=== PATIENT | female | born 1980 | race African-American/Black ===

== ENCOUNTER 2021-06-15 20:29 | Inpatient (IN) | payer MEDICARE, OTHER ==
[~2021-06-15] VITALS: Ht 165.1 cm; Wt 145.6 kg
--- NOTE | 2021-06-15 20:40 | NUR ---
PATIENT BIB RA 89 FROM [facility]. PATIENT UPON ARRIVAL WITH NON REBREATHER MASK ON 15 OF SATTING AT 97%.
--- NOTE | 2021-06-15 20:43 | NUR ---
Dr. Barillas on bedside for MSE.
[2021-06-15] MEDS ORDERED: ALBUTEROL SULFATE 2.5 MG/3 ML NEBU NEB ONE ×2 (21:00→22:45)
[2021-06-15] MEDS ORDERED: IPRATROPIUM BROMIDE 0.5 MG/2.5 ML NEBU NEB ONE (21:00)
[2021-06-15] MEDS ORDERED: predniSONE 10 MG TABLET PO ONE (21:00)
[2021-06-15] MEDS ORDERED: ALBUTEROL SULFATE 2.5 MG/3 ML NEBU ONE ×2 (21:11→22:42)
[2021-06-15] MEDS ORDERED: IPRATROPIUM BROMIDE 0.5 MG/2.5 ML NEBU ONE (21:12)
[2021-06-15] MEDS ORDERED: predniSONE 20 MG TABLET ONE (21:23)
[2021-06-15 21:54] LABS: HEMATOCRIT 33.8 % (31.2-41.9); MEAN CORPUSCULAR HEMOGLOBIN 25.9 uug (24.7-32.8); MEAN CORPUSCULAR VOLUME 82.3 fL (75.5-95.3); PLATELET COUNT (AUTO) 367 K/uL (179-408)
--- NOTE | 2021-06-15 22:00 | NUR ---
BIPAP PER MD VERBAL ORDER. TRIED PUTTING PATIENT ON BIPAP BUT PATIENT IS REFUSING TO BE PUT ON BIPAP. DOES NOT WANT TO BE ON BIPAP. PLACED PATIENT ON 100% FIO2 NRB MASK. PATIENT ALSO DOES NOT WANT ABG TO BE DONE. SAYS DOES NOT WANT NERVE DAMAGE. DR. DHILLON IS AWARE. PATIENT'S SPO2 IS CURRENTLY 97% .
[2021-06-15 22:10] LABS: ALANINE AMINOTRANSFERASE 48 U/L (14-59); ALKALINE PHOSPHATASE 227 U/L (50-136); ASPARTATE AMINOTRANSFERASE 28 U/L (15-37); BILIRUBIN,DIRECT < 0.1 mg/dL (0.0-0.2); BILIRUBIN,TOTAL 0.2 mg/dL (0.2-1.0); CHLORIDE 98 mmol/L (98-107); CREATININE 1.8 mg/dL (0.6-1.3); GLUCOSE 274 mg/dL (74-106); POTASSIUM 5.3 mmol/L (3.5-5.1); TOTAL PROTEIN, SERUM 8.5 g/dL (6.4-8.2); UREA NITROGEN, BLOOD 36 mg/dL (7-18)
[2021-06-15 22:14] LABS: CARBON DIOXIDE 40 mmol/L (21-32)
[2021-06-15 22:30] LABS: ABG BASE EXCESS 5.3 mmol/L; ABG HCO3 34.9 mmol/L; ABG PCO2 81.3 mmHg (35.0-45.0); ABG SITE RIGHT RADIAL; ABG TOTAL HEMOGLOBIN 11.8 G/dL (12.0-16.0); COHb 1.1 % (0.5-1.5); MetHb 0.3 % (0.0-1.5); O2Hb 92.6 % (94.0-97.0)
--- NOTE | 2021-06-15 22:30 | NUR ---
STU DRAWN. RESULTS GIVEN TO DR. DHILLON.
[2021-06-15] MEDS ORDERED: NEPA3DRO EACHEYE (22:43)
[2021-06-15] MEDS ORDERED: CARV25TA2 PO (22:43)
[2021-06-15] MEDS ORDERED: MAGN400O6 PO (22:43)
[2021-06-15] MEDS ORDERED: HEPA500034 SUBCUT (22:43)
[2021-06-15] MEDS ORDERED: NITR0.4T48 SL (22:43)
[2021-06-15] MEDS ORDERED: ATOR10TA PO (22:43)
[2021-06-15] MEDS ORDERED: ASCO500C18 PO (22:43)
[2021-06-15] MEDS ORDERED: ACET-2154 PO (22:43)
[2021-06-15] MEDS ORDERED: DOCU-141 PO (22:43)
[2021-06-15] MEDS ORDERED: MONT10TA33 PO (22:43)
[2021-06-15] MEDS ORDERED: METH-815 PO (22:43)
[2021-06-15] MEDS ORDERED: DIPH25CA83 PO (22:43)
[2021-06-15] MEDS ORDERED: CALC-261 PO (22:43)
[2021-06-15] MEDS ORDERED: ASPI81TA31 PO (22:43)
[2021-06-15] MEDS ORDERED: INSU100C4 SUBCUT (22:43)
[2021-06-15] MEDS ORDERED: LORA-259 PO (22:43)
[2021-06-15] MEDS ORDERED: GABA600T12 PO (22:43)
[2021-06-15] MEDS ORDERED: MELA5TAB PO (22:43)
[2021-06-15] MEDS ORDERED: DEXT15DR6 EACHEYE (22:43)
[2021-06-15] MEDS ORDERED: HYDR-4075 PO (22:43)
[2021-06-15] MEDS ORDERED: LEVO25TA9 PO (22:43)
[2021-06-15] MEDS ORDERED: OFLO5DRO EACHEYE (22:43)
[2021-06-15] MEDS ORDERED: ONDA-104 PO (22:43)
[2021-06-15] MEDS ORDERED: PANT40TA49 PO (22:43)
[2021-06-15] MEDS ORDERED: BENZ-13 PO (22:43)
[2021-06-15] MEDS ORDERED: NIFE-34 PO (22:43)
[2021-06-15] MEDS ORDERED: INSULIN GLARGINE SUBCUT ×2 (22:43)
[2021-06-15] MEDS ORDERED: VIT1TABL46 PO (22:43)
[2021-06-15] MEDS ORDERED: BUME1TAB8 PO (22:43)
[2021-06-15] MEDS ORDERED: CRAN425C6 PO (22:43)
[2021-06-15] MEDS ORDERED: CEFTRIAXONE 1 G in IV DEXTROSE 5% 50 ML IV ONE (22:45)
[2021-06-15] MEDS ORDERED: AZITHROMYCIN IV 500 MG in IV DEXTROSE 5% 250 ML IV ONE (22:45)
[2021-06-15] MEDS ORDERED: TERBUTALINE SULFATE 1 MG/1 ML VIAL SQ ONE (22:45)
[2021-06-15] MEDS ORDERED: LIDOCAINE 1%-EPI 1:100,000 20 ML VIAL ONE (23:25)
--- NOTE | 2021-06-15 23:37 | NUR ---
patient has IV access to right breast. attempted central line insertion, unsuccessful at this time. hold off on IV abx per ER right now
[2021-06-15] MEDS ORDERED: TERBUTALINE SULFATE 1 MG/1 ML VIAL ONE (23:49)
--- NOTE | 2021-06-15 23:57 | NUR ---
ASKED PATIENT IF SHE CAN TRY TOLERATING THE BIPAP. PLACED PATIENT ON BIPAP BUT PATIENT DID NOT LIKE. PATIENT DOES NOT WANT BIPAP ON. WANTS TO PUT ON NRB MASK. PATIENT IS ON NRB 15LPM. PATIENT SAYS SHES MORE COMFORTABLE ON NRB. DR. DHILLON IS AWARE.
[2021-06-16] VITALS (20 sets, daily range): BP systolic 137–174; BP diastolic 78–108
--- NOTE | 2021-06-16 | NUR ---
RT at bedside. patient unable to tolerate BIPAP. notified Dr. Barillas. patient currently on 15L NRB saturating 91-92%
[2021-06-16] MEDS ORDERED: LIDOCAINE 1%-EPI 1:100,000 20 ML VIAL IJ ONE (00:15)
--- NOTE | 2021-06-16 01:22 | NUR ---
pending nurse tech & vascular surgeon for central line access. per house sup, unable to have picc line nurse come in at this time.
[2021-06-16] MEDS ORDERED: ENOXAPARIN SODIUM 100 MG/ML DISP.SYRIN SQ ONE ×2 (01:45→03:02)
[2021-06-16] MEDS ORDERED: NITROGLYCERIN 0.4 MG/TAB BOTTLE SL PRN (02:15)
[2021-06-16] MEDS ORDERED: ONDANSETRON 4 MG/2 ML VIAL IV PRN (02:15)
[2021-06-16] MEDS ORDERED: BENZONATATE 100 MG CAPSULE PO PRN (02:15)
[2021-06-16] MEDS ORDERED: DEXTROSE 50% 50 ML DISP.SYRIN IV PRN (02:15)
[2021-06-16] MEDS ORDERED: ACETAMINOPHEN 325 MG TABLET PO PRN (02:15)
--- NOTE | 2021-06-16 02:29 | NUR ---
Dr. Schilling placed central line to right femoral. radio electronics technician Suzan was at bedside to assist.
[2021-06-16] MEDS ORDERED: diphenhydrAMINE 50 MG/1 ML VIAL IV ONE (02:30)
[2021-06-16] MEDS ORDERED: diphenhydrAMINE 50 MG/1 ML VIAL ONE (02:39)
[2021-06-16 02:57] LABS: FERRITIN 78 ng/mL (8-252)
--- NOTE | 2021-06-16 03:32 | NUR ---
patient transported to CCU Bed 3 on 15L NRB
--- NOTE | 2021-06-16 03:35 | NUR ---
Admitted a 40 y.o female patient from ER via [facility]vil DX: Respiratory Failure. To CCU 3; attached to bedside monitor. Routine CCU monitoring and care explained to patient. Uncooperative. Very SOB when lying flat during repositioning. Assessment done.
[2021-06-16] MEDS ORDERED: ALBUTEROL SULFATE 2.5 MG/3 ML NEBU IH PRN (03:45)
--- NOTE | 2021-06-16 03:45 | NUR ---
RTs at bedside. Placed on BIPAP settings: rate=16 15/5 QEW5=715%. Patient would nod off to sleep, arouses easily to name calls.
--- NOTE | 2021-06-16 03:52 | NUR ---
PATIENT TRANSPORTED TO CCU BED 3 VIA NRB, ASSISTED BT DAVID RN AND CARLOS RT. NO INCIDENT DURING TRANSPORT. PLACED PATIENT ON BIPAP WITH THE FOLLOWING SETTINGS THAT ARE CHARTED PER MD ORDERS. TOLERATING WELL AT THIS TIME. NO SOB NOTED. ALARMS ARE ON AND AUDIBLE. WILL CONTINUE TO MONITOR.
[2021-06-16 04:19] LABS: LACTATE DEHYDROGENASE 265 U/L (81-234)
[2021-06-16] MEDS ORDERED: HEPARIN SODIUM,PORCINE 5,000 UNITS/ML VIAL SQ SCH (06:00)
--- NOTE | 2021-06-16 06:00 | NUR ---
Patient incontinent of brown stools. Still very uncooperative at times. Advised. Remains on BIPAP with 100% FIO2. Saturations above 92%.
[2021-06-16] MEDS: GABAPENTIN 300 MG CAPSULE PO SCH ×2 (06:31→14:17)
[2021-06-16] MEDS: PANTOPRAZOLE SODIUM 40 MG TABLET.DR PO SCH (07:07)
[2021-06-16] MEDS: BLOOD SUGAR DIAGNOSTIC 1 EACH STRIP VI SCH ×4 (07:36→23:02)
[2021-06-16] MEDS: INSULIN REGULAR, HUMAN 300 UNIT/3 ML VIAL SQ PRN ×4 (07:39→23:04)
[2021-06-16] MEDS: LEVOTHYROXINE SODIUM 25 MCG TABLET PO SCH (07:39)
[2021-06-16 07:40] LABS: ABG BASE EXCESS 8.1 mmol/L; ABG HCO3 38.7 mmol/L; ABG PCO2 93.6 mmHg (35.0-45.0); ABG PH 7.234 (7.350-7.450); ABG PO2 94.3 mmHg (75.0-100.0); ABG SITE RIGHT RADIAL; COHb 0.7 % (0.5-1.5); MetHb 0.1 % (0.0-1.5); O2Hb 95.6 % (94.0-97.0)
--- NOTE | 2021-06-16 07:40 | NUR ---
Received patient in bed laying on side uncooperative, labile mood, refusing anything offered. Several staff in room to help settle patient. Demanding to wipe inside her rectum and show her each towel. Patient is short of breath and refusing to have BIpap placed. RT Finally able to convince patient to do ABG. Sample obtained. Patient calmed and explained that everyone is here to help her, patient is very suspicious asking for contents of her bag.
[2021-06-16] MEDS: NIFEdipine XL 60 MG TABSR PO SCH ×2 (08:07→23:00)
[2021-06-16] MEDS: BUMETANIDE 1 MG TABLET PO SCH ×2 (08:07→16:39)
[2021-06-16] MEDS: CARVEDILOL 25 MG TABLET PO SCH ×2 (08:08→23:00)
[2021-06-16] MEDS: ASPIRIN 81 MG TAB.CHEW PO SCH (08:08)
[2021-06-16] MEDS: LINEZOLID IV 600 MG in PREMIXED 1 EACH IV SCH ×2 (08:09→22:27)
[2021-06-16] MEDS: FLUTICASONE/VILANTEROL 1 EACH BLST.W.DEV INH SCH (08:09)
[2021-06-16] MEDS: LORAZEPAM 1 MG TABLET PO PRN (08:10)
--- NOTE | 2021-06-16 08:10 | NUR ---
Patient requested Ativan. Given as ordered and asked patient to place the bipap on as ordered due to poor ABG's. Patient agreed.
[2021-06-16] MEDS ORDERED: CEFEPIME HCL 1 G VIAL IM SCH (09:00)
[2021-06-16] MEDS: CEFEPIME HCL 2 G in IV DEXTROSE 5% 100 ML IV SCH ×2 (10:58→18:12)
[2021-06-16] MEDS: METHADONE HCL 10 MG TABLET PO SCH ×2 (11:00→16:44)
[2021-06-16] MEDS: methylPREDNISolone SOD SUCC 40 MG/ML VIAL IV SCH ×2 (11:00→15:42)
[2021-06-16] MEDS: HEPARIN SODIUM,PORCINE 5,000 UNITS/ML VIAL SQ SCH (14:17)
--- NOTE | 2021-06-16 15:31 | NUR ---
Patient continues to rest in bed in no distress, able to make requests and express needs.
--- NOTE | 2021-06-16 17:00 | NUR ---
Patient taken off bipap per request, and medication administration. Patient stated she is hungry. Waiting on dinner, tolerating Nasal cannula 5L saturation of 97%.
--- NOTE | 2021-06-16 18:58 | NUR ---
Patient tolerating Nasal Cannula 5L saturation is 94%. No distress noted at this time.
--- NOTE | 2021-06-16 19:15 | NUR ---
received patient awake , on 5 l nc , flores intact , iv intact , sr denies distress , no fever
--- NOTE | 2021-06-16 21:00 | NUR ---
dr schwartz is informed of patient's behavior , paranoid , manipulative and verbally abusive to the nurses , refusal to use the bipap , currently agreed on simple mask at 10 l
--- NOTE | 2021-06-16 21:15 | NUR ---
when primary nurse and rubber liner are inside the room , notifiy the patient shes's going to be cleaned , refused the help of rubber liner , and wants only the primary nurse to clean her , when explained , that primary nurse couldnt handle her alone to be cleaned , became angry and argumentative , finally agreed with two people
--- NOTE | 2021-06-16 21:15 | NUR ---
patient had a bowel movement , charge nurse from 3rd floor was asked to send a hotel registration clerk to help clean the patient , hotel registration clerk came , primary nurse and hotel registration clerk at bedside , started cleaning the patient , started getting paranoid , and abusive verbally to both nurses , wants to see each towel to use to make use there is no smear of poop on each towel , at the same time doesnt want us to in the inner folds to clean , paranoid that we touched her and changed her oxygen level so she couldn't breath , when no one touch her oxygen , supervisor print line is called and went inside the room , while patient is being continued to be cleaned , argued and became beligerent talking to the supervisor print line , while supervisor print line explained that her butt is already cleaned of poop while supervisor print line is watching but still insisting to keep rubbing , verbalized couldn't breath , rt is called , rt came inside the room , refused to be placed on a higher level of oxygen , just wants to be on a simple mask bipap is offered and refused , and keeps talking and complaining to the family about the service , while complaining she couldn't breath but doesn't want to follow instructions to rest and stop talking to conserve energy and , non compliant , refused bipap again when offered , dr schwartz is called , roberth ordered ,
--- NOTE | 2021-06-16 21:30 | NUR ---
while boat cleaning supervisor is at bedside , patient is not happy the way we clean , she was asked to clean herself while we assist the way she wanted to be cleaned , since shes very able to use her both arms since she is not happy and accusing the nursers of hurting and rubbing her , refused but at the same time doesn "t want us to continue cleaning her
--- NOTE | 2021-06-16 21:35 | NUR ---
loading and unloading supervisor is called and notified of patient's paranoid and manipulative and verbally abusive behavior , loading and unloading supervisor went up to talk to the patient and stayed when patient agreed to be continued to be cleaned
--- NOTE | 2021-06-16 21:40 | NUR ---
patient is placed on simple mask 10 liters since refused bipap , paranoid and verbally abusive
--- NOTE | 2021-06-16 21:50 | NUR ---
Pt placed on 10L S/M at this time. Addendum: 06/17/21 at 0035 by ADRIAN BAUMAN RT Pt refused to be placed on BIPAP
[2021-06-16] MEDS ORDERED: HALOPERIDOL DECANOATE 50 MG/1 ML AMPUL IM ONE (22:00)
--- NOTE | 2021-06-16 22:00 | NUR ---
building repair maintenance supervisor talked to the daughter , informed of incident that she witnessed at the bedside
--- NOTE | 2021-06-16 22:00 | NUR ---
food offered and refused , wants to keep the tray in the room
--- NOTE | 2021-06-16 22:07 | NUR ---
devan , id is here to see patient
--- NOTE | 2021-06-16 22:50 | NUR ---
report given to rolando gonzalez , history , behavior , medications , and procedure ordered tomorrow
[2021-06-16] MEDS: DOCUSATE SODIUM 100 MG CAPSULE PO SCH (22:58)
[2021-06-16] MEDS: ATORVASTATIN 10 MG TABLET PO SCH (23:00)
--- NOTE | 2021-06-16 23:00 | NUR ---
all belongings sent cupola charger insulation , insuling pump and and the wh ole duffle bag , patient is holding her cell phone
[2021-06-16] MEDS: MONTELUKAST SODIUM 10 MG TABLET PO SCH (23:01)
[2021-06-16] MEDS: CALCIUM CARB/VITAMIN D 500MG-200UNITS TABLET PO SCH (23:02)
[2021-06-16] MEDS ORDERED: diphenhydrAMINE 50 MG/1 ML VIAL IV STA (23:35)
[2021-06-17] VITALS: BP 153/83
[2021-06-17] MEDS: methylPREDNISolone SOD SUCC 40 MG/ML VIAL IV SCH ×3 (00:05→20:35)
[2021-06-17] MEDS: LORAZEPAM 1 MG TABLET PO PRN ×2 (00:06→20:57)
[2021-06-17] MEDS: GABAPENTIN 300 MG CAPSULE PO SCH ×4 (00:06→21:07)
[2021-06-17] MEDS: HEPARIN SODIUM,PORCINE 5,000 UNITS/ML VIAL SQ SCH ×4 (00:26→21:08)
[2021-06-17] MEDS: ACETAMINOPHEN 325 MG TABLET PO PRN ×2 (00:42→09:44)
[2021-06-17 01:18] LABS: *BILIRUBIN,URIN NEGATIVE (NEGATIVE); *BLOOD, URINE 2+ (NEGATIVE); *CLARITY,URINE CLEAR (CLEAR); *COLOR,URINE YELLOW (YELLOW); *KETONES,URINE NEGATIVE (NEGATIVE); *UROBILINOGEN,URINE 0.2 E.U./dl (NORMAL); LEUKOCYTE ESTERASE ,URINE TRACE (NEGATIVE); NITRITE, URINE NEGATIVE (NEGATIVE); PH,URINE 5.5 (5.0-8.0); UGLUCOSE TRACE (NEGATIVE)
[2021-06-17 01:23] LABS: *URINE HCG, QUAL NEGATIVE (NEGATIVE)
[2021-06-17] MEDS: CEFEPIME HCL 2 G in IV DEXTROSE 5% 100 ML IV SCH ×3 (01:41→18:12)
[2021-06-17 02:02] LABS: BACTERIA,URINE FEW /HPF (NONE SEEN); RBC,URINE 20-50 /HPF (0-3); SQUAMOUS EPITHELIAL CELL,UR FEW /HPF (NONE SEEN)
[2021-06-17 04:00] VITALS: BP 154/89
[2021-06-17] MEDS ORDERED: HALOPERIDOL LACTATE 5 MG/1 ML VIAL IM ONE (04:00)
[2021-06-17 05:59] LABS: ABG BASE EXCESS 8.9 mmol/L; ABG HCO3 37.1 mmol/L; ABG PCO2 71.6 mmHg (35.0-45.0); ABG PH 7.332 (7.350-7.450); ABG PO2 76.2 mmHg (75.0-100.0); ABG SITE RIGHT RADIAL; ABG TOTAL HEMOGLOBIN 11.4 G/dL (12.0-16.0); COHb 0.5 % (0.5-1.5); MetHb 0.1 % (0.0-1.5)
[2021-06-17] MEDS: PANTOPRAZOLE SODIUM 40 MG TABLET.DR PO SCH (06:01)
[2021-06-17 06:12] LABS: HEMATOCRIT 31.5 % (31.2-41.9); MEAN CORPUSCULAR HEMOGLOBIN 25.9 uug (24.7-32.8); MEAN CORPUSCULAR VOLUME 82.2 fL (75.5-95.3); PLATELET COUNT (AUTO) 335 K/uL (179-408)
[2021-06-17 06:25] LABS: BILIRUBIN,TOTAL 0.2 mg/dL (0.2-1.0); CREATININE 1.7 mg/dL (0.6-1.3); MAGNESIUM 2.3 mg/dL (1.8-2.4); POTASSIUM 5.4 mmol/L (3.5-5.1); TOTAL PROTEIN, SERUM 8.5 g/dL (6.4-8.2)
[2021-06-17] MEDS: BLOOD SUGAR DIAGNOSTIC 1 EACH STRIP VI SCH ×4 (06:34→20:53)
[2021-06-17] MEDS: LEVOTHYROXINE SODIUM 25 MCG TABLET PO SCH (06:34)
--- NOTE | 2021-06-17 06:42 | NUR ---
Pt transferred from CCU last night, is AxO x4. Pt with frequent episodes of restlessness and anxiety. Calm environment provided, deep breathing encouraged. Pt refused some meds and BIPAP last night despite discussing benefits of treatment. Pt remains on simple mask 10L with O2 sats above 93%, desats as low as 86% when pt anxious or with activity. Pt ordered food last night. Advised appropriately but pt noncompliant with diet, food delivered to bedside. Monitor blood glucose closely. Right femoral PICC c/d/i. F/C intact and patent. AM care provided, turned and repositioned per pt request. All needs attended. All belongings at bedside. Call light within reach.
[2021-06-17] MEDS: BUMETANIDE 1 MG TABLET PO SCH ×2 (08:47→17:01)
[2021-06-17] MEDS: ASPIRIN 81 MG TAB.CHEW PO SCH (08:47)
[2021-06-17] MEDS: NIFEdipine XL 60 MG TABSR PO SCH ×2 (08:53→20:37)
[2021-06-17] MEDS: CARVEDILOL 25 MG TABLET PO SCH ×2 (08:53→20:36)
[2021-06-17] MEDS: INSULIN REGULAR, HUMAN 300 UNIT/3 ML VIAL SQ PRN ×3 (08:57→17:12)
[2021-06-17] MEDS: FLUTICASONE/VILANTEROL 1 EACH BLST.W.DEV INH SCH (09:00)
[2021-06-17] MEDS: LINEZOLID IV 600 MG in PREMIXED 1 EACH IV SCH ×2 (09:00→20:57)
--- NOTE | 2021-06-17 09:50 | NUR ---
patient refused zyvox x3 explained risks and benefits, patient states no.
[2021-06-17] MEDS: METHADONE HCL 10 MG TABLET PO SCH (10:42)
--- NOTE | 2021-06-17 11:00 | NUR ---
PATIENT REFUSED CEFEPIME X3, EXPLAINED RISK AND BENEFITS PATIENT AGAIN STATES " NO BUT I WILL TAKE MY METHADONE"
[2021-06-17 11:33] VITALS: BP 156/99
[2021-06-17] MEDS: LOPERAMIDE HCL 2 MG CAPSULE PO PRN ×2 (12:08→20:36)
[2021-06-17] MEDS: diphenhydrAMINE 50 MG/1 ML VIAL IV PRN ×2 (14:06→20:37)
[2021-06-17] MEDS ORDERED: BENZOCAINE/MENTH/CETYLPYRD LOZENGE MM PRN (15:15)
[2021-06-17 16:00] VITALS: BP 148/83
--- NOTE | 2021-06-17 17:00 | NUR ---
patient ordered take out from mehdi selby, explained risks of not following proper diet, patient states "ok".
--- NOTE | 2021-06-17 19:30 | NUR ---
Received in bed, semi fowlers position. Still noted with SOB, 02 sats 95-96% on 5L/ min- able to decrease to 4L and keep 02 sats 92-94% via NC. Denies any pain or discomfort. States she has had diarrhea and would like Imodium. Patient is obese and refuses to wear gown or cover herself, is naked in bed without sheets. Central line in place to right femoral, patent and intact. Montelongo catheter in place, draining clear yellow urine. Needs assessed and attended. Safety measures initiated.
[2021-06-17 20:00] VITALS: BP 149/97
[2021-06-17] MEDS: MONTELUKAST SODIUM 10 MG TABLET PO SCH (20:36)
[2021-06-17] MEDS: ATORVASTATIN 10 MG TABLET PO SCH (20:36)
[2021-06-17] MEDS: CALCIUM CARB/VITAMIN D 500MG-200UNITS TABLET PO SCH (20:36)
[2021-06-17] MEDS: DOCUSATE SODIUM 100 MG CAPSULE PO SCH (20:53)
[2021-06-17] MEDS: INSULIN REGULAR, HUMAN 300 UNITS/3 ML VIAL SQ PRN (20:54)
[2021-06-17] MEDS ORDERED: SODIUM POLYSTYRENE SULFONATE 15 G/60 ML LIQUID UDC PO ONE (21:45)
--- NOTE | 2021-06-17 21:51 | NUR ---
PATIENT REMAINS ON O2 @ 4L/M NC , SAT 92% , TALKING AND ALERT, WITH CONT PULSE OXY AT BEDSIDE, PT REFUSING BI/PAP MACHINE , FOR NOW, NURSE INFORMED, NO RESP. DISTRESS NOTED, PT KIND OF ANXIOUS AND NERVOUS , REASSURE PT IS DOING WELL ON O2 , THEN SHE CALMS DOWN . Emily ZARAGOZA RCP Addendum: 06/17/21 at 2154 by SANDRA ZARAGOZA RT Amended: Links added.
--- NOTE | 2021-06-17 23:12 | NUR ---
WATCHING PATIENT FALLING ASLEEP, TITRATE 02 TO 3L/N SAT 94%, THEN 2L/M NC , SAT 92% , HR 73, REPORTED TO ELLIE HUFFMAN ON 2L/M NC, KEEP SAT 88-92%. Emily DELEONP Addendum: 06/17/21 at 2314 by SANDRA ZARAGOZA RT Amended: Links added.
[2021-06-17] MEDS ORDERED: SODIUM POLYSTYRENE SULFONATE ENEMA 30 G/120 ML BOTTLE RC ONE (23:44)
[2021-06-18] VITALS: BP 147/82
[2021-06-18] MEDS: CEFEPIME HCL 2 G in IV DEXTROSE 5% 100 ML IV SCH ×3 (01:41→18:42)
[2021-06-18] MEDS ORDERED: MORPHINE SULFATE 2 MG/1 ML DISP.SYRIN ONE (03:22)
[2021-06-18] MEDS: MORPHINE SULFATE 2 MG/1 ML DISP.SYRIN IV PRN ×4 (03:25→22:49)
[2021-06-18 04:00] VITALS: BP 160/94
[2021-06-18] MEDS: GABAPENTIN 300 MG CAPSULE PO SCH ×3 (06:08→21:01)
[2021-06-18] MEDS: LEVOTHYROXINE SODIUM 25 MCG TABLET PO SCH (06:08)
[2021-06-18] MEDS: HEPARIN SODIUM,PORCINE 5,000 UNITS/ML VIAL SQ SCH ×3 (06:09→21:06)
[2021-06-18] MEDS: PANTOPRAZOLE SODIUM 40 MG TABLET.DR PO SCH (06:10)
[2021-06-18] MEDS: LORAZEPAM 1 MG TABLET PO PRN ×2 (06:19→20:37)
--- NOTE | 2021-06-18 06:27 | NUR ---
Patient was weaned to 2L/min via NC this shift, 02sats 90-92 at rest. Noted to desat to 84-86 during hygiene care or when HOB low. Patient noted with high anxiety during these episodes, emotional support provided with little help. Patient is negative towards staff during anxiety spells and thankful once she is calm. Safety measures continued. On telemetry, NSR . Slept intermittently. Call light within reach.
[2021-06-18] MEDS: BLOOD SUGAR DIAGNOSTIC 1 EACH STRIP VI SCH ×4 (06:39→20:47)
--- NOTE | 2021-06-18 09:22 | NUR ---
received call from [facility] from [place] to report patient is positive for mrsa in both nares. DR. Gracia notified, no orders at this time.
--- NOTE | 2021-06-18 09:33 | NUR ---
received new orders for bactroban ointment for nares for dx mrsa for both nares, noted and carried out.
[2021-06-18] MEDS: LINEZOLID IV 600 MG in PREMIXED 1 EACH IV SCH (09:36)
[2021-06-18] MEDS: methylPREDNISolone SOD SUCC 40 MG/ML VIAL IV SCH ×2 (09:36→20:35)
[2021-06-18] MEDS: ASPIRIN 81 MG TAB.CHEW PO SCH (09:36)
[2021-06-18] MEDS: BUMETANIDE 1 MG TABLET PO SCH ×2 (09:36→16:41)
[2021-06-18] MEDS: CARVEDILOL 25 MG TABLET PO SCH ×2 (09:37→20:39)
[2021-06-18] MEDS: LOPERAMIDE HCL 2 MG CAPSULE PO PRN ×3 (09:37→22:49)
[2021-06-18] MEDS: diphenhydrAMINE 50 MG/1 ML VIAL IV PRN ×3 (09:37→22:49)
[2021-06-18] MEDS: METHADONE HCL 10 MG TABLET PO SCH (09:38)
[2021-06-18] MEDS: NIFEdipine XL 60 MG TABSR PO SCH ×2 (09:38→20:37)
[2021-06-18] MEDS: INSULIN REGULAR, HUMAN 300 UNIT/3 ML VIAL SQ PRN ×3 (09:39→16:48)
[2021-06-18] MEDS: MUPIROCIN 2% OINT 22 GM TUBE NS SCH ×2 (10:46→20:38)
[2021-06-18] MEDS ORDERED: SODIUM POLYSTYRENE SULFONATE 15 G/60 ML LIQUID UDC PO ONE (12:15)
[2021-06-18] MEDS: FLUTICASONE/VILANTEROL 1 EACH BLST.W.DEV INH SCH (13:25)
--- NOTE | 2021-06-18 13:37 | NUR ---
patient refused kayaxelate x3, explained risk and benefits, patient states "no asia no"
[2021-06-18] MEDS ORDERED: HYOSCYAMINE SULFATE 0.125 MG TABLET PO PRN (15:45)
[2021-06-18 16:12] VITALS: BP 142/84
--- NOTE | 2021-06-18 19:30 | NUR ---
AAO x4, resting in bed in left lateral position. On 3L/ min via NC, 02 sats 93-94. C/o ABD pain, Tylenol pofferred and accepted. Patient c/o loose stools and request Imodium when due. Still noted with anxiety and worrisome. Safety measures continued. On telemetry, NSR . Call light within reach.
[2021-06-18 20:00] VITALS: BP 164/90
[2021-06-18] MEDS: ATORVASTATIN 10 MG TABLET PO SCH (20:37)
[2021-06-18] MEDS: CALCIUM CARB/VITAMIN D 500MG-200UNITS TABLET PO SCH (20:37)
[2021-06-18] MEDS: ACETAMINOPHEN 325 MG TABLET PO PRN (20:37)
[2021-06-18] MEDS: MONTELUKAST SODIUM 10 MG TABLET PO SCH (20:37)
[2021-06-18] MEDS: DOCUSATE SODIUM 100 MG CAPSULE PO SCH (20:38)
[2021-06-18] MEDS: INSULIN REGULAR, HUMAN 300 UNITS/3 ML VIAL SQ PRN (20:49)
[2021-06-19] VITALS: BP 160/80
[2021-06-19] MEDS: CEFEPIME HCL 2 G in IV DEXTROSE 5% 100 ML IV SCH ×3 (01:34→17:57)
[2021-06-19 04:00] VITALS: BP 162/82
[2021-06-19] MEDS: MORPHINE SULFATE 2 MG/1 ML DISP.SYRIN IV PRN ×3 (06:18→19:41)
[2021-06-19] MEDS: GABAPENTIN 300 MG CAPSULE PO SCH ×3 (06:18→21:02)
[2021-06-19] MEDS: LEVOTHYROXINE SODIUM 25 MCG TABLET PO SCH (06:18)
[2021-06-19] MEDS: PANTOPRAZOLE SODIUM 40 MG TABLET.DR PO SCH (06:18)
[2021-06-19] MEDS: diphenhydrAMINE 50 MG/1 ML VIAL IV PRN ×3 (06:18→19:40)
[2021-06-19] MEDS: LOPERAMIDE HCL 2 MG CAPSULE PO PRN ×2 (06:18→22:45)
[2021-06-19] MEDS: HEPARIN SODIUM,PORCINE 5,000 UNITS/ML VIAL SQ SCH ×3 (06:30→21:04)
[2021-06-19] MEDS: BLOOD SUGAR DIAGNOSTIC 1 EACH STRIP VI SCH ×4 (06:30→20:51)
--- NOTE | 2021-06-19 06:44 | NUR ---
Slept well this shift. Continues on 3L via NC, 02 sats 92-93. No episodes of severe SOB or desaturation this shift. SOB still noted on exertion and when speaking. Central line to right femoral artery is intact and patent. C/O itching to buttocks, Benadryl 25mg IV effective. Imodium PO provided for diarrhea. Patient is non compliant with [facility] diet. On Telemetry, NSR HR 67. Continues to be Hyperglycemic- Regular insulin coverage continued. Safety measures continued. Call light within reach.
--- NOTE | 2021-06-19 07:15 | NUR ---
Received patient asleep in bed. On 3L O2 via NC. No signs of acute distress. NSR on garnetter. Bed locked and in low position. Call light within reach. Will continue to monitor.
[2021-06-19 07:16] LABS: HEMATOCRIT 34.7 % (31.2-41.9); MEAN CORPUSCULAR HEMOGLOBIN 25.9 uug (24.7-32.8); MEAN CORPUSCULAR VOLUME 81.2 fL (75.5-95.3); PLATELET COUNT (AUTO) 360 K/uL (179-408)
[2021-06-19 07:49] LABS: CREATININE 1.5 mg/dL (0.6-1.3); PHOSPHOROUS 3.5 mg/dL (2.5-4.9); POTASSIUM 4.4 mmol/L (3.5-5.1)
[2021-06-19] MEDS: FLUTICASONE/VILANTEROL 1 EACH BLST.W.DEV INH SCH (08:04)
[2021-06-19] MEDS: INSULIN REGULAR, HUMAN 300 UNIT/3 ML VIAL SQ PRN ×3 (08:08→16:47)
[2021-06-19] MEDS: methylPREDNISolone SOD SUCC 40 MG/ML VIAL IV SCH (08:11)
[2021-06-19] MEDS: ASPIRIN 81 MG TAB.CHEW PO SCH (09:29)
[2021-06-19] MEDS: BUMETANIDE 1 MG TABLET PO SCH ×2 (09:29→16:24)
[2021-06-19] MEDS: MUPIROCIN 2% OINT 22 GM TUBE NS SCH ×2 (09:29→20:32)
[2021-06-19] MEDS: CARVEDILOL 25 MG TABLET PO SCH ×2 (09:29→20:31)
[2021-06-19] MEDS: NIFEdipine XL 60 MG TABSR PO SCH ×2 (09:30→20:30)
[2021-06-19] MEDS: METHADONE HCL 10 MG TABLET PO SCH (09:30)
--- NOTE | 2021-06-19 11:20 | NUR ---
Patient blood glucose is 421. Patient denies nausea/ vomiting. Patient denies headache/ blurred vision. No signs of acute distress. Dr. Gracia informed and new orders given. Will continue to monitor.
[2021-06-19 11:53] VITALS: BP 148/91
[2021-06-19] MEDS: INSULIN LISPRO 300 UNIT/3 ML VIAL SQ SCH ×2 (12:03→17:51)
--- NOTE | 2021-06-19 13:49 | NUR ---
Patient complained of abdominal pain, 03/20. Morphine 1mg IV PRN given. Patient complained of itchiness. Benadryl PRN given. Will continue to monitor patient. Addendum: 06/19/21 at 1353 by ANA FREDERICK RN RN Patient vital signs BP 123/70. HR 70. On 2L O2 via NC, saturating 93%. No signs of acute distress.
[2021-06-19 16:22] VITALS: BP 123/78
[2021-06-19] MEDS: LORAZEPAM 1 MG TABLET PO PRN (16:24)
--- NOTE | 2021-06-19 18:40 | NUR ---
Patient resting in bed. AOx4. On 2L O2 via NC, saturating 94-95%. Denies pain/ discomfort at this time. Patient noncompliant with diet. Compliant with medications and care. Montelongo catheter draining clear, yellow urine. IV access patent and intact. Bed alarm on for safety. Call light within reach. Will endorse to incoming shift for continuity of care.
[2021-06-19] MEDS: MONTELUKAST SODIUM 10 MG TABLET PO SCH (20:29)
[2021-06-19] MEDS: DOCUSATE SODIUM 100 MG CAPSULE PO SCH (20:30)
[2021-06-19] MEDS: ATORVASTATIN 10 MG TABLET PO SCH (20:30)
[2021-06-19] MEDS: CALCIUM CARB/VITAMIN D 500MG-200UNITS TABLET PO SCH (20:32)
[2021-06-19 20:40] VITALS: BP 144/92
--- NOTE | 2021-06-19 20:51 | NUR ---
Blood sugar is 527. Stat random glucose check ordered. Per Lab, no rugby union footballer available until 2200. Will follow up. Insulin coverage and Lantus was given.
[2021-06-19] MEDS ORDERED: INSULIN GLARGINE,HUM 300 UNITS/3 ML CARTRIDGE SQ SCH (21:00)
[2021-06-19] MEDS ORDERED: methylPREDNISolone SOD SUCC 40 MG/ML VIAL IV SCH (21:00)
[2021-06-19] MEDS: INSULIN REGULAR, HUMAN 300 UNITS/3 ML VIAL SQ PRN (21:23)
--- NOTE | 2021-06-19 22:53 | NUR ---
Critical lab, glucose random is 468. notified.
[2021-06-20] MEDS: MORPHINE SULFATE 2 MG/1 ML DISP.SYRIN IV PRN ×4 (01:23→19:16)
[2021-06-20] MEDS: diphenhydrAMINE 50 MG/1 ML VIAL IV PRN ×4 (01:23→19:16)
[2021-06-20] MEDS: CEFEPIME HCL 2 G in IV DEXTROSE 5% 100 ML IV SCH (02:09)
[2021-06-20 04:32] VITALS: BP 156/92
[2021-06-20] MEDS: PANTOPRAZOLE SODIUM 40 MG TABLET.DR PO SCH (06:08)
[2021-06-20] MEDS: GABAPENTIN 300 MG CAPSULE PO SCH ×3 (06:08→21:11)
[2021-06-20] MEDS: LEVOTHYROXINE SODIUM 25 MCG TABLET PO SCH (06:08)
[2021-06-20] MEDS: HEPARIN SODIUM,PORCINE 5,000 UNITS/ML VIAL SQ SCH ×3 (06:12→21:23)
[2021-06-20] MEDS ORDERED: DIPHENOXYLATE HCL/ATROP SULF TABLET PO PRN (06:15)
[2021-06-20] MEDS: BLOOD SUGAR DIAGNOSTIC 1 EACH STRIP VI SCH ×4 (06:30→21:40)
--- NOTE | 2021-06-20 06:30 | NUR ---
morning blood sugar is 522. ordered stat glucose check. will follow up.
[2021-06-20] MEDS: LOPERAMIDE HCL 2 MG CAPSULE PO PRN (06:37)
[2021-06-20] MEDS: INSULIN LISPRO 300 UNIT/3 ML VIAL SQ SCH ×3 (06:38→16:33)
[2021-06-20 06:58] LABS: HEMATOCRIT 36.3 % (31.2-41.9); MEAN CORPUSCULAR HEMOGLOBIN 25.9 uug (24.7-32.8); MEAN CORPUSCULAR VOLUME 82.2 fL (75.5-95.3); PLATELET COUNT (AUTO) 364 K/uL (179-408)
[2021-06-20] MEDS: INSULIN GLARGINE,HUM 300 UNITS/3 ML CARTRIDGE SQ SCH ×2 (07:03→21:43)
[2021-06-20 07:12] LABS: CREATININE 1.8 mg/dL (0.6-1.3); MAGNESIUM 2.3 mg/dL (1.8-2.4); PHOSPHOROUS 3.2 mg/dL (2.5-4.9); POTASSIUM 4.9 mmol/L (3.5-5.1)
--- NOTE | 2021-06-20 08:00 | NUR ---
Critical lav value: Random glucose: 601. MD informed. Will continue to monitor.
[2021-06-20 08:16] VITALS: BP 144/85
[2021-06-20] MEDS: INSULIN REGULAR, HUMAN 300 UNIT/3 ML VIAL SQ PRN ×3 (08:19→16:30)
[2021-06-20] MEDS: MUPIROCIN 2% OINT 22 GM TUBE NS SCH ×2 (08:39→21:41)
[2021-06-20] MEDS: ASPIRIN 81 MG TAB.CHEW PO SCH (08:39)
[2021-06-20] MEDS: FLUTICASONE/VILANTEROL 1 EACH BLST.W.DEV INH SCH (08:39)
[2021-06-20] MEDS: BUMETANIDE 1 MG TABLET PO SCH ×2 (08:39→16:26)
[2021-06-20] MEDS: CARVEDILOL 25 MG TABLET PO SCH ×2 (08:40→21:12)
[2021-06-20] MEDS: NIFEdipine XL 60 MG TABSR PO SCH ×2 (08:40→21:12)
[2021-06-20] MEDS: METHADONE HCL 10 MG TABLET PO SCH (08:40)
[2021-06-20] MEDS ORDERED: INSULIN REGULAR, HUMAN 300 UNIT/3 ML VIAL SQ ONE (08:45)
[2021-06-20] MEDS: LORAZEPAM 1 MG TABLET PO PRN ×2 (11:10→21:53)
[2021-06-20 11:18] LABS: LYMPHOCYTES % (MANUAL) 8 % (20-40); MONOCYTES % (MANUAL) 7 % (2-10); NEUTROPHILS % (MANUAL) 85 % (42-75)
[2021-06-20 12:34] VITALS: BP 125/78
--- NOTE | 2021-06-20 13:32 | NUR ---
Patient complained of abdominal pain. 02/17. Patient vital signs 118/67 NH 86 O2 saturation 94%. Morphine PRN given. Will continue to monitor.
[2021-06-20 16:23] VITALS: BP 140/84
--- NOTE | 2021-06-20 18:37 | NUR ---
Patient resting in bed. AOx4. On 2L O2 via NC, saturating 94-95%. No signs of acute distress. Patient compliant with medications and care. IV access patent and intact. Montelongo catheter draining yellow, clear urine. Patient complained of pain, Morphine PRN given and patient tolerated well. Needs anticipated and met. Call light within reach. Bed alarm on for safety. Will endorse to incoming shift for continuity of care.
--- NOTE | 2021-06-20 19:35 | NUR ---
Received pt sitting up in bed, AO x 4, on continuous pulse ox, 2L NC saturating at 92%, flores catheter intact, CHANDA Piccline intact and patent. No signs of acute distress. Call light within reach, belongings place by bedside within reach, safety measures initiated. Addendum: 06/21/21 at 0440 by LIDIA BOSS RN Right femoral PICC line intact.
[2021-06-20 20:21] VITALS: BP 153/90
[2021-06-20] MEDS: DOCUSATE SODIUM 100 MG CAPSULE PO SCH (21:00)
[2021-06-20] MEDS: CALCIUM CARB/VITAMIN D 500MG-200UNITS TABLET PO SCH (21:12)
[2021-06-20] MEDS: ATORVASTATIN 10 MG TABLET PO SCH (21:12)
[2021-06-20] MEDS: MONTELUKAST SODIUM 10 MG TABLET PO SCH (21:12)
--- NOTE | 2021-06-20 21:40 | NUR ---
Patient's blood sugar 422, gave 40 units Lantus and 10 units regular insulin. No signs of acute distress. Will continue to monitor.
[2021-06-20] MEDS: INSULIN REGULAR, HUMAN 300 UNITS/3 ML VIAL SQ PRN (21:44)
--- NOTE | 2021-06-20 22:15 | NUR ---
rechecked pt's blood sugar 458, notified. No signs of acute distress. Informed pt on diet and is non compliant.
[2021-06-21 04:26] VITALS: BP 134/67
[2021-06-21] MEDS: diphenhydrAMINE 50 MG/1 ML VIAL IV PRN ×2 (04:28→11:31)
[2021-06-21] MEDS: MORPHINE SULFATE 2 MG/1 ML DISP.SYRIN IV PRN ×2 (04:29→11:32)
[2021-06-21] MEDS: GABAPENTIN 300 MG CAPSULE PO SCH ×2 (06:14→14:59)
[2021-06-21] MEDS: PANTOPRAZOLE SODIUM 40 MG TABLET.DR PO SCH (06:15)
[2021-06-21] MEDS: HEPARIN SODIUM,PORCINE 5,000 UNITS/ML VIAL SQ SCH ×2 (06:15→15:00)
[2021-06-21] MEDS: LEVOTHYROXINE SODIUM 25 MCG TABLET PO SCH (06:15)
[2021-06-21] MEDS: BLOOD SUGAR DIAGNOSTIC 1 EACH STRIP VI SCH ×2 (06:27→12:27)
--- NOTE | 2021-06-21 06:34 | NUR ---
Patient slept throughout the night, AO x 3/4, on 2L NC saturating at 95%, R femoral PICC line intact and patent, F/C intact and draining well, clear yellow color, no unusual odor. skin intact, no sacral redness. Pt is non compliant with diet, educated pt on importances of healthy diet and different alternatives for sugary items. No signs of acute distress. Call lights within reach, safety measures maintained. BSG 373. Will endorse to am shift.
[2021-06-21 06:51] LABS: HEMATOCRIT 36.5 % (31.2-41.9); MEAN CORPUSCULAR HEMOGLOBIN 25.6 uug (24.7-32.8); MEAN CORPUSCULAR VOLUME 80.8 fL (75.5-95.3); PLATELET COUNT (AUTO) 386 K/uL (179-408)
[2021-06-21 07:06] LABS: CREATININE 1.6 mg/dL (0.6-1.3); PHOSPHOROUS 3.2 mg/dL (2.5-4.9); POTASSIUM 4.1 mmol/L (3.5-5.1)
--- NOTE | 2021-06-21 07:30 | NUR ---
Received patient in bed alert and oriented times 4. Patient seems anxious at times. Patient is on 1L on oxygen NC. Patient is bed bound, she is cooperative at times but sometimes need coaching to be compliant. Glucose is elevated, will give medications as ordered. Patient has multiple allergies. Safety precautions are in place. Will continue to monitor.
[2021-06-21] MEDS ORDERED: HYOS0.1273 PO (07:54)
[2021-06-21] MEDS ORDERED: DIPH1TAB28 PO (07:54)
[2021-06-21] MEDS ORDERED: FLUT1BLS INH (07:54)
[2021-06-21] MEDS: INSULIN LISPRO 300 UNIT/3 ML VIAL SQ SCH ×2 (09:36→12:31)
[2021-06-21] MEDS: FLUTICASONE/VILANTEROL 1 EACH BLST.W.DEV INH SCH (09:37)
[2021-06-21] MEDS: MUPIROCIN 2% OINT 22 GM TUBE NS SCH (09:37)
[2021-06-21] MEDS: ASPIRIN 81 MG TAB.CHEW PO SCH (09:37)
[2021-06-21] MEDS: METHADONE HCL 10 MG TABLET PO SCH (09:37)
[2021-06-21] MEDS: BUMETANIDE 1 MG TABLET PO SCH (09:37)
[2021-06-21 10:14] VITALS: BP 116/75
[2021-06-21] MEDS: NIFEdipine XL 60 MG TABSR PO SCH (10:14)
[2021-06-21] MEDS: CARVEDILOL 25 MG TABLET PO SCH (10:14)
[2021-06-21] MEDS: INSULIN GLARGINE,HUM 300 UNITS/3 ML CARTRIDGE SQ SCH (10:16)
[2021-06-21] MEDS: INSULIN REGULAR, HUMAN 300 UNIT/3 ML VIAL SQ PRN (12:30)
[2021-06-21] MEDS: LORAZEPAM 1 MG TABLET PO PRN (13:45)
--- NOTE | 2021-06-21 15:45 | NUR ---
Patient is being discharged to a SNF, all paperwork signed and a copy given to the nursing facility. Belongings list completed but patient refused to sign. All her belongings send with her. Femoral and and Chest IV removed and sign dressed, sterile technique implemented. Called and gave report to the SNF with RN Juan. All medications given as ordered. Patient stable at time of discharge, Vitals within normal limits. ID band removed.
== END 2021-06-21 15:45 | DRG 871 ==
LOC: ER 20:31 → CCU 06-16 02:13 → TELE3 06-16 23:01 → MEDSURG3 06-19 10:10
PROVIDERS: ADMIT Internal Medicine; ATTEND Nurse Practitioner Acute Care
DX: A41.89 Other specified sepsis (principal); J96.22 Acute and chronic respiratory failure with hypercapnia; J96.21 Acute and chronic respiratory failure with hypoxia; J15.9 Unspecified bacterial pneumonia; G93.41 Metabolic encephalopathy; N17.0 Acute kidney failure with tubular necrosis; D68.59 Other primary thrombophilia; E44.1 Mild protein-calorie malnutrition; E66.2 Morbid (severe) obesity with alveolar hypoventilation; I13.0 Hypertensive heart and chronic kidney disease with heart failure and stage 1 through stage 4 chronic kidney disease, or unspecified chronic kidney disease; Z68.43 Body mass index [BMI] 50.0-59.9, adult; E87.1 Hypo-osmolality and hyponatremia; J44.0 Chronic obstructive pulmonary disease with (acute) lower respiratory infection; J44.1 Chronic obstructive pulmonary disease with (acute) exacerbation; E87.5 Hyperkalemia; D63.8 Anemia in other chronic diseases classified elsewhere; E03.9 Hypothyroidism, unspecified; E11.22 Type 2 diabetes mellitus with diabetic chronic kidney disease; E11.65 Type 2 diabetes mellitus with hyperglycemia; E78.5 Hyperlipidemia, unspecified; F41.9 Anxiety disorder, unspecified; F20.9 Schizophrenia, unspecified; F31.9 Bipolar disorder, unspecified; G40.909 Epilepsy, unspecified, not intractable, without status epilepticus; G62.9 Polyneuropathy, unspecified; I50.9 Heart failure, unspecified; K21.9 Gastro-esophageal reflux disease without esophagitis; N18.9 Chronic kidney disease, unspecified; Z79.890 Hormone replacement therapy; Z79.4 Long term (current) use of insulin; Z79.899 Other long term (current) drug therapy; Z87.891 Personal history of nicotine dependence; Z91.19 Patient's noncompliance with other medical treatment and regimen; M19.90 Unspecified osteoarthritis, unspecified site; Z87.440 Personal history of urinary (tract) infections; Z88.1 Allergy status to other antibiotic agents; Z88.0 Allergy status to penicillin; Z88.2 Allergy status to sulfonamides; Z88.8 Allergy status to other drugs, medicaments and biological substances
CPT/HCPCS: 36415; 36600; 70030-TC; 71045; 76770; 82785; 83605; 83615; 83735; 84100; 84703; 85025; 87040; 87400; 93005; 93307; 94660; 94760; 97161; A4663; G0378; J0692; J1200; J1644; J1650; J1815; J2020; J2270; J2405; J2920; J3105; J3490; J3590; J7050; J7060; J7512